=== PATIENT | female | born 1955 | race Hispanic/Latino ===

== ENCOUNTER 2017-12-08 20:32 | Emergency (ER) | payer MEDICARE ==
[~2017-12-08 20:32] MED LIST: AEC81 PO; LEVO50TA11 PO; LINA145C PO; LISI40TA4 PO; METO-391 PO; PANT40TA25 PO; SIMV40TA59 PO
[2017-12-08] MEDS ORDERED: IBUPROFEN 400 MG TABLET ONE (21:13)
== END 2017-12-08 21:45 | disposition home or self-care (01) ==
LOC: EDH 20:32
DX: Z04.3 Encounter for examination and observation following other accident (principal); I10 Essential (primary) hypertension; E07.9 Disorder of thyroid, unspecified; I47.1 Supraventricular tachycardia; E78.5 Hyperlipidemia, unspecified; Z90.710 Acquired absence of both cervix and uterus; Z90.49 Acquired absence of other specified parts of digestive tract; Z98.890 Other specified postprocedural states; V49.49XA Driver injured in collision with other motor vehicles in traffic accident, initial encounter; Y93.89 Activity, other specified; Y92.89 Other specified places as the place of occurrence of the external cause; Y99.8 Other external cause status

== ENCOUNTER → 2022-01-25 | Outpatient (CLI) | payer MEDICARE ==
[~2022-01-25] MED LIST changes: -LISI40TA4 PO; +LISI40TA9 PO; -PANT40TA25 PO; +PANT40TA54 PO
[2022-01-25 16:24] LABS: BASOPHILS % (AUTO) 0.5 % (0.0-5.0); EOSINOPHILS % (AUTO) 0.3 % (0.0-8.0); HEMATOCRIT 31.9 % (36-48); LYMPHOCYTES % (AUTO) 33.2 % (21.0-51.0); MEAN CORPUSCULAR HEMOGLOBIN 26.5 pg (27.0-33.0); MEAN CORPUSCULAR HGB CONC 30.4 g/dL (32.0-36.0); MEAN CORPUSCULAR VOLUME 87.2 fL (79-99); MONOCYTES % (AUTO) 9.1 % (3.0-13.0); NEUTROPHILS % (AUTO) 56.5 % (40.0-77.0); PLATELET COUNT (AUTO) 470 K/uL (130-400); RED BLOOD CELL COUNT(AUTO) 3.66 MIL/uL (4.00-5.50); RED CELL DISTRIBUTION WIDTH 15.5 % (11.0-15.5); WHITE BLOOD COUNT (AUTO) 7.5 K/uL (4.8-10.8)
[2022-01-25 16:25] LABS: CREATININE 0.8 mg/dL (0.5-1.5)
[2022-01-25 16:55] LABS: B-TYPE NATRIURETIC PEPTIDE 27 pg/mL (0-100)
== END | disposition home or self-care (01) ==
LOC: LAB 13:02
PROVIDERS: ATTEND Internal Medicine Cardiovascular Disease
DX: I10 Essential (primary) hypertension (principal); E03.9 Hypothyroidism, unspecified; E78.5 Hyperlipidemia, unspecified
CPT/HCPCS: 36415; 80048; 83880; 85025